=== PATIENT | female | born 1985 | race Caucasian/White ===

== ENCOUNTER 2018-11-17 10:46 | Emergency (ER) | payer OTHER ==
[~2018-11-17] VITALS: Ht 160 cm; Wt 68.0 kg
--- NOTE | 2018-11-17 11:10 | NUR ---
ED Nurse Note: c/o pain, swelling and redness over ther right wrist that is spreading to RUE x 3-4 days assoicated with chills after IV Heroin use. Patient able to wiggle her right fingers and cap refill < 3 sec. Patient awake, alert, oriented x 4. Regular, unlabored breathing noted.
[2018-11-17 11:18] VITALS: BP 116/70
--- NOTE | 2018-11-17 12:01 | Emergency Room Report ---
History of Present Illness General Chief Complaint: Skin Rash/Abscess Source: Patient Present Illness HPI 33-year-old female comes here with complaint of right arm pain and swelling for last few days, I stop by to evaluate her, and was going to get more supplies and then was told by nursing staff that she told registration had to leave and eloped. Allergies: Coded Allergies: No Known Allergies (Unverified , 11/17/18) Patient History Past Medical History: see triage record Last Menstrual Period: 10/2018 Reviewed Nursing Documentation: PMH: Agreed; PSxH: Agreed Nursing Documentation-PMH Past Medical History: No History, Except For Review of Systems Constitutional: Denies: fever Eye: Denies: acuity changes Respiratory: Denies: cough, shortness of breath Cardiovascular: Denies: chest pain Gastrointestinal: Denies: nausea, vomiting Skin: Denies: rash Neurological: Denies: headache All Other Systems: limited - Because patient eloped I did not get a detailed review of systems Physical Exam Vital Signs Date Time Temp Pulse Resp B/P (MAP) Pulse Ox O2 Delivery O2 Flow Rate FiO2 11/17/18 11:07 98.2 100 16 116/70 99 Room Air General Appearance: well appearing, no apparent distress Head: normocephalic, atraumatic ENT: hearing grossly normal, normal voice Neck: full range of motion, supple Respiratory: no respiratory distress, speaking full sentences Musculoskeletal: no calf tenderness, swelling - Right upper extremity with obvious swelling and erythema Neurologic: alert, normal gait Psychiatric: mood/affect normal Skin: no rash Medical Decision Making Diagnostic Impression: Primary Impression: Abscess ER Course Likely arm abscess, but detailed evaluation not performed since patient eloped after my initial encounter Last Vital Signs Date Time Temp Pulse Resp B/P (MAP) Pulse Ox O2 Delivery O2 Flow Rate FiO2 11/17/18 11:18 98.2 100 16 116/70 99 Room Air Disposition: ELOPED Condition: Stable DEON COELHO M.D Nov 17, 2018 12:01
[2018-11-17 12:03] VITALS: BP 116/70
--- NOTE | 2018-11-17 12:03 | NUR ---
ED Nurse Note: pt not found in the room. Dr. Daley notified. per registration personnel, pt tole them, she needs to leave the facility due to upcoming appointment.
== END 2018-11-17 12:03 | disposition left against medical advice (07) ==
LOC: EMR 11:45
DX: L02.413 Cutaneous abscess of right upper limb (principal)
CPT/HCPCS: 99281

== ENCOUNTER 2019-11-20 19:48 | Emergency (ER) | payer OTHER ==
[~2019-11-20] VITALS: Ht 160 cm; Wt 63.5 kg
--- NOTE | 2019-11-20 19:59 | NUR ---
ED Nurse Note: Patient walked in today with complaints of lesion at left forearm x 1 week, patient was previously prescribed antibiotics last week for 6 days but without resolution.
[2019-11-20 20:00] VITALS: BP 106/66
[2019-11-20] MEDS ORDERED: Clindamycin 600mg 50 ML IVPB ONE (20:15)
[2019-11-20] MEDS ORDERED: Vancomycin 1 GM in NS 275 ML IVPB ONE (20:15)
--- NOTE | 2019-11-20 20:18 | Emergency Room Report ---
History of Present Illness General Chief Complaint: Skin Rash/Abscess Source: Patient Present Illness HPI Disclaimer: Please note that this report is being documented using [employer] technology. This can lead to erroneous entry secondary to incorrect interpretation by the dictating instrument. HPI: 34-year-old female with a history of IV drug abuse presents evaluation of skin abscess. States has had a swelling and redness surrounding the left wrist for approximately 6 days. Seen at outpatient clinic and prescribed Keflex and clindamycin. Has been taking medications as prescribed. Notes worsening swelling, redness and purulent drainage from the site. It is spreading over the ventral aspect of the wrist but is still able to flex and extend the wrist as well as the digits of the hand. Denies fever or chills. States she does not inject into that region of the arm but does inject into that arm. Cannot recall any trauma. She has had abscesses in the past PMH: IV drug abuse PSH: Reviewed Allergies: Reviewed Social Hx: IV drug abuse Allergies: Coded Allergies: No Known Allergies (Unverified , 11/17/18) COVID-19 Screening Contact w/high risk pt: No Recent Travel to affected area: No Experienced COVID-19 symptoms?: No Review of Systems All Other Systems: negative except mentioned in HPI Physical Exam Vital Signs Date Time Temp Pulse Resp B/P (MAP) Pulse Ox O2 Delivery O2 Flow Rate FiO2 11/20/19 19:53 98.1 105 18 106/66 (79) 98 General: Awake and alert, no acute distress HEENT: NC/AT. EOMI. Resp: Normal work of breathing Skin: There is a raised and fluctuant region with punctate spots of purulent drainage over the radial aspect of the left wrist extensively over the ventral compartment. Surrounding erythema. MSK: Normal tone and bulk. Moving all extremities. No obvious deformity. Able to flex and extend all digits. Able to flex and extend the wrist. Neuro: Awake and alert. Mentating appropriately Procedures Ultrasound Ultrasound : Consent: Verbal Patient Tolerated: Well Complications: None Progress Bedside ultrasound of soft tissue involving the left wrist. Significant fluid collections over the radial and ventral surface of the wrist consistent with abscess and surrounding cellulitis. Medical Decision Making Diagnostic Impression: Primary Impression: Abscess ER Course 34-year-old female presents for evaluation of abscess to the left wrist. She has been on antibiotics for 6 days without improvement and in fact is worsening. Bedside ultrasound confirms a large abscess. Discussed with Dr. Mendes of surgery who recommends admission for IV antibiotics and OR washout. Will obtain x-ray to evaluate for foreign body, send labs and blood cultures. Will start IV antibiotics. Laboratory Tests Test 11/20/19 21:10 White Blood Count 11.3 K/UL (4.8-10.8) H Red Blood Count 5.06 M/UL (4.20-5.40) Hemoglobin 12.2 G/DL (12.0-16.0) Hematocrit 39.1 % (37.0-47.0) Mean Corpuscular Volume 77 FL (80-99) L Mean Corpuscular Hemoglobin 24.2 PG (27.0-31.0) L Mean Corpuscular Hemoglobin Concent 31.3 G/DL (32.0-36.0) L Red Cell Distribution Width 14.6 % (11.6-14.8) Platelet Count 400 K/UL (150-450) Mean Platelet Volume 6.6 FL (6.5-10.1) Neutrophils (%) (Auto) 55.3 % (45.0-75.0) Lymphocytes (%) (Auto) 33.3 % (20.0-45.0) Monocytes (%) (Auto) 6.5 % (1.0-10.0) Eosinophils (%) (Auto) 3.9 % (0.0-3.0) H Basophils (%) (Auto) 1.0 % (0.0-2.0) Sodium Level 138 MMOL/L (136-145) Potassium Level 3.5 MMOL/L (3.5-5.1) Chloride Level 99 MMOL/L (98-107) Carbon Dioxide Level 32 MMOL/L (21-32) Anion Gap 7 mmol/L (5-15) Blood Urea Nitrogen 11 mg/dL (7-18) Creatinine 0.8 MG/DL (0.55-1.30) Estimated Glomerular Filtration Rate > 60 mL/min (>60) Glucose Level 62 MG/DL (74-106) L Calcium Level 9.3 MG/DL (8.5-10.1) Total Bilirubin 0.3 MG/DL (0.2-1.0) Aspartate Amino Transferase (AST) 16 U/L (15-37) Alanine Aminotransferase (ALT) 17 U/L (12-78) Alkaline Phosphatase 83 U/L (46-116) Total Protein 8.5 G/DL (6.4-8.2) H Albumin 3.4 G/DL (3.4-5.0) Globulin 5.1 g/dL Albumin/Globulin Ratio 0.7 (1.0-2.7) L Other X-Ray Diagnostic Results Other X-Ray Diagnostic Results : X-Ray ordered: Left forearm # of Views/Limited Vs Complete: 2 View Indication: Pain Interpretation: no dislocation, no fractures, other - Soft tissue swelling but no foreign body Impression: Other - Soft tissue swelling consistent with abscess/cellulitis Electronically Signed by: Electronically signed by Dr. Sean Love Reevaluation Time: 22:45 Last Vital Signs Date Time Temp Pulse Resp B/P (MAP) Pulse Ox O2 Delivery O2 Flow Rate FiO2 11/20/19 20:00 98.1 112 18 106/66 98 Reevaluation Impression Labs show minor white count but otherwise largely within normal limits. X-ray shows soft tissue swelling consistent with abscess or cellulitis but no evidence of fracture or foreign body. The patient will be [facility] per her insurance plan. Received antibiotics. She is stable for transfer. Disposition: SHORT-TERM HOSP Condition: Serious Sean Love MD Nov 20, 2019 20:18
[2019-11-20] MEDS ORDERED: Naproxen 500mg tab ORAL ONE (21:30)
[2019-11-20] MEDS ORDERED: Acetaminophen 500mg (ES) tab ORAL ONE (21:30)
[2019-11-20 21:33] LABS: ANION GAP 7 mmol/L (5-15); BLOOD UREA NITROGEN 11 mg/dL (7-18); CALCIUM 9.3 MG/DL (8.5-10.1); CARBON DIOXIDE 32 MMOL/L (21-32); CHLORIDE 99 MMOL/L (98-107); CREATININE 0.8 MG/DL (0.55-1.30); POTASSIUM 3.5 MMOL/L (3.5-5.1); SODIUM 138 MMOL/L (136-145)
[2019-11-20 21:38] LABS: ALANINE AMINOTRANSFERASE 17 U/L (12-78); ALBUMIN 3.4 G/DL (3.4-5.0); ALBUMIN/GLOBULIN RATIO 0.7 (1.0-2.7); ALKALINE PHOSPHATASE 83 U/L (46-116); ASPARTATE AMINO TRANSFERASE 16 U/L (15-37); BILIRUBIN,TOTAL 0.3 MG/DL (0.2-1.0); EOSINOPHILS % (AUTO) 3.9 % (0.0-3.0); HEMATOCRIT 39.1 % (37.0-47.0); HEMOGLOBIN 12.2 G/DL (12.0-16.0); LYMPHOCYTES % (AUTO) 33.3 % (20.0-45.0); MEAN CORPUSCULAR VOLUME 77 FL (80-99); MONOCYTES % (AUTO) 6.5 % (1.0-10.0); NEUTROPHILS % (AUTO) 55.3 % (45.0-75.0); PLATELET COUNT 400 K/UL (150-450); RED BLOOD COUNT 5.06 M/UL (4.20-5.40); RED CELL DISTRIBUTION WIDTH 14.6 % (11.6-14.8); WHITE BLOOD COUNT 11.3 K/UL (4.8-10.8)
--- NOTE | 2019-11-20 21:56 | NUR ---
ED Nurse Note: Patient is resting comfiortably with no complaints. IV vanco running without complication.
--- NOTE | 2019-11-20 23:10 | NUR ---
ED Nurse Note: Patient is sleeping comfortably with no s/s of acute distress. Vital signs stable and documented.
[2019-11-20 23:11] VITALS: BP 104/58
--- NOTE | 2019-11-20 23:55 | NUR ---
ED Nurse Note: Called and spoke to Yudy ACOSTA at [facility].
--- NOTE | 2019-11-20 23:57 | NUR ---
ED Nurse Note: Patient is in stable condition, vital signs stable and documented. 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
[2019-11-21] VITALS: BP 104/58
--- NOTE | 2019-11-21 | NUR ---
ED Nurse Note: patient departed with al belongings, accompanied by [facility] transport.
--- NOTE | 2019-11-21 09:49 | Diagnostic Imaging Report ---
Indications: Left forearm pain Technique: Two views of the left forearm Comparison: None Findings: There is an apparent soft tissue mass resulting in elevation of the skin surface lateral to the distal radial shaft. There is also evidence of edema of the subcutaneous fat in this region. No soft tissue gas. No radiopaque foreign body. No acute fractures or dislocations. No bony erosions Impression: Lateral superficial soft tissue mass, presumably clinically evident. Correlate with clinical findings No evidence of foreign body, osseous erosion, or soft tissue gas No acute bony trauma
== END 2019-11-21 | disposition short-term general hospital (02) ==
LOC: EMR 20:30
DX: L02.414 Cutaneous abscess of left upper limb (principal)
CPT/HCPCS: 36415; 73090; 80053; 85025; 87040; 96365; 96368; J3370; J7050; Z7502; 99284; S0077